=== PATIENT | male | born 1935 | race Caucasian/White ===

== ENCOUNTER 2020-11-25 11:02 | Emergency (ER) | payer OTHER ==
[~2020-11-25] VITALS: Ht 177.8 cm; Wt 101.6 kg
[~2020-11-25 11:02] MED LIST: ASCO500 PO; ASPI325 PO; ASPI81CH PO; BUDE6HFA INH; CHOL10002; CHOLESTEROL MED; COENZYME Q10100 MG PO; CYAN1000 PO; FORM12IH IH; HYDACE5 PO; Hair, Skin & N1 EACH; Hair, Skin & N1 EACH PO; METCAR500 PO; MOME220I IH; MULVITA; OXYACE5T PO; Omeprazole20 M1 PO; RED YEAST RICE30 GM PO; SIMV20 PO; SIMV40 PO; SUCR1SU PO; TRAM50 PO
[2020-11-25] MEDS ORDERED: STIOLTO RESPIMAT4 G1 INH (11:15)
[2020-11-25 11:40] LABS: BASOPHILS ABSOLUTE AUTO 0.04 K/mm3 (0.00-0.23); BASOPHILS PERCENT AUTO 1 % (0-2); EOSINOPHILS ABSOLUTE AUTO 0.17 K/mm3 (0.00-0.68); EOSINOPHILS PERCENT AUTO 2 % (0-6); Hematocrit 50.4 % (37.0-53.0); Hemoglobin 16.2 g/dL (13.5-17.5); IMMATURE GRAN ABSOLUTE AUTO 0.03 K/mm3 (0.00-0.10); IMMATURE GRAN PERCENT AUTO 0 % (0-1); LYMPHOCYTES ABSOLUTE AUTO 1.29 K/mm3 (0.84-5.20); LYMPHOCYTES PERCENT AUTO 15 % (21-46); MONOCYTES ABSOLUTE AUTO 0.76 K/mm3 (0.16-1.47); MONOCYTES PERCENT AUTO 9 % (4-13); Mean Corpuscular HGB 31.8 pg (26.0-34.0); Mean Corpuscular HGB Conc 32.1 g/dL (31.5-36.5); Mean Corpuscular Volume 99 fL (80-100); Mean Platelet Volume 10.4 fL (9.1-12.4); NEUTROPHILS ABSOLUTE AUTO 6.57 K/mm3 (1.96-9.15); NEUTROPHILS PERCENT AUTO 74 % (41-73); Platelet Count 249 K/mm3 (150-400); RDW Coefficient Variation 13.1 % (11.7-14.2); RDW Standard Deviation 48.5 fL (35.1-46.3); Red Blood Cell Count 5.09 M/mm3 (4.30-5.90); White Blood Cell Count 8.86 K/mm3 (4.00-11.30)
[2020-11-25 11:51] LABS: Alanine Aminotransfer (ALT/SGP 23 U/L (12-78); Albumin, Blood 3.6 g/dL (3.4-5.0); Albumin/Globulin Ratio 1.1 (0.8-1.8); Alk Phos 61 U/L (50-136); Anion Gap 2 mmol/L (6-16); Aspartate Aminotrans (AST/SGOT 17 U/L (12-37); Bilirubin, Total 0.8 mg/dL (0.1-1.0); Blood Urea Nitrogen 15 mg/dL (8-24); Bun/Creatinine Ratio 14.7 (12.0-20.0); CO2, Blood 34 mmol/L (21-32); Calcium, Blood 8.8 mg/dL (8.5-10.1); Chloride, Blood 100 mmol/L (98-108); Creatinine, Blood 1.02 mg/dL (0.60-1.20); Globulin, Blood 3.4 g/dL (2.2-4.0); Glomerular Filtration Rate >60 (60-); Glucose, Blood 121 mg/dL (70-99); Potassium, Blood 4.4 mmol/L (3.5-5.5); Sodium, Blood 136 mmol/L (136-145)
[2020-11-25] MEDS ORDERED: LEVFLO500 PO (14:29)
[2020-11-25] MEDS ORDERED: PRED20 PO (14:29)
== END 2020-11-25 15:20 | disposition home or self-care (01) ==
LOC: ER 11:02
PROVIDERS: Emergency Medicine
DX: J44.1 Chronic obstructive pulmonary disease with (acute) exacerbation (principal); Z79.51 Long term (current) use of inhaled steroids; Z79.899 Other long term (current) drug therapy
CPT/HCPCS: 71045; 80053; 85025; 93005; 93010; 94644; 96365; 96367; 96375; 99285-25; J0456; J0696; J2930; J7050

== ENCOUNTER 2020-12-27 10:53 | Inpatient (IN) | payer OTHER ==
[~2020-12-27] VITALS: Ht 177.8 cm; Wt 99.8 kg
[~2020-12-27 10:53] MED LIST changes: +LEVFLO500 PO; +PRED20 PO; +STIOLTO RESPIMAT4 G1 INH
[2020-12-27 11:50] LABS: BASOPHILS ABSOLUTE AUTO 0.04 K/mm3 (0.00-0.23); BASOPHILS PERCENT AUTO 0 % (0-2); EOSINOPHILS ABSOLUTE AUTO 0.03 K/mm3 (0.00-0.68); EOSINOPHILS PERCENT AUTO 0 % (0-6); Hemoglobin 17.5 g/dL (13.5-17.5); IMMATURE GRAN ABSOLUTE AUTO 0.04 K/mm3 (0.00-0.10); IMMATURE GRAN PERCENT AUTO 0 % (0-1); LYMPHOCYTES ABSOLUTE AUTO 1.67 K/mm3 (0.84-5.20); LYMPHOCYTES PERCENT AUTO 16 % (21-46); MONOCYTES ABSOLUTE AUTO 0.84 K/mm3 (0.16-1.47); MONOCYTES PERCENT AUTO 8 % (4-13); Mean Corpuscular HGB 31.8 pg (26.0-34.0); Mean Corpuscular HGB Conc 31.8 g/dL (31.5-36.5); Mean Corpuscular Volume 100 fL (80-100); Mean Platelet Volume 10.4 fL (9.1-12.4); NEUTROPHILS ABSOLUTE AUTO 7.59 K/mm3 (1.96-9.15); NEUTROPHILS PERCENT AUTO 74 % (41-73); Platelet Count 257 K/mm3 (150-400); RDW Coefficient Variation 11.9 % (11.7-14.2); RDW Standard Deviation 44.2 fL (35.1-46.3); Red Blood Cell Count 5.51 M/mm3 (4.30-5.90); White Blood Cell Count 10.21 K/mm3 (4.00-11.30)
[2020-12-27 11:57] LABS: Base Excess Venous 14.3 mmol/L; Bicarbonate Venous 33.2 mmol/L (24.0-30.0); PCO2 Venous 81.5 mmHg (38-42); PO2 Venous 158 mmHg (38-42); pH Blood Venous 7.31 (7.34-7.37)
[2020-12-27] MEDS ORDERED: LORA10ER PO ×2 (11:58→15:57)
[2020-12-27] MEDS ORDERED: OMEP20ER PO ×2 (11:58→15:56)
[2020-12-27] MEDS ORDERED: ASPI81CH PO (11:58)
[2020-12-27] MEDS ORDERED: GUAI600T33 PO ×2 (11:58→15:55)
[2020-12-27 12:13] LABS: Alanine Aminotransfer (ALT/SGP 29 U/L (12-78); Albumin, Blood 3.9 g/dL (3.4-5.0); Albumin/Globulin Ratio 1.2 (0.8-1.8); Alk Phos 64 U/L (50-136); Anion Gap 2 mmol/L (6-16); Aspartate Aminotrans (AST/SGOT 23 U/L (12-37); Bilirubin, Total 0.7 mg/dL (0.1-1.0); Blood Urea Nitrogen 18 mg/dL (8-24); Bun/Creatinine Ratio 22.5 (12.0-20.0); CO2, Blood 40 mmol/L (21-32); Calcium, Blood 8.9 mg/dL (8.5-10.1); Chloride, Blood 94 mmol/L (98-108); Globulin, Blood 3.3 g/dL (2.2-4.0); Glomerular Filtration Rate >60 (60-); Glucose, Blood 128 mg/dL (70-99); Potassium, Blood 4.7 mmol/L (3.5-5.5); Sodium, Blood 136 mmol/L (136-145); Total Protein, Blood 7.2 g/dL (6.4-8.2)
[2020-12-27 13:14] LABS: Base Excess Venous 16.5 mmol/L; Bicarbonate Venous 33.9 mmol/L (24.0-30.0); PO2 Venous 151 mmHg (38-42); pH Blood Venous 7.22 (7.34-7.37)
[2020-12-27] MEDS ORDERED: ALBU2.5V5 INH (15:55)
[2020-12-27] MEDS ORDERED: STIOLTO RESPIMAT4 G1 INH (15:55)
[2020-12-27] MEDS ORDERED: ASCO500 PO (15:56)
[2020-12-27] MEDS ORDERED: VITAMIN D31000 UNI1 PO (15:56)
[2020-12-27] MEDS ORDERED: Aspir 8181 MG PO (15:57)
[2020-12-27 16:03] LABS: Bicarbonate Venous 32.3 mmol/L (24.0-30.0); PO2 Venous 45 mmHg (38-42); pH Blood Venous 7.22 (7.34-7.37)
[2020-12-27 16:04] LABS: Base Excess Venous 15.9 mmol/L
--- NOTE | 2020-12-27 17:36 | NUR ---
Echocardiogram completed.
--- NOTE | 2020-12-27 18:40 | NUR ---
SHIFT SUMMARY PT LETHARGIC AND CONFUSED ONCE ARRIVED TO ROOM FROM ED. PT ON BIPAP AT 40% FIO2. OXYGEN SATURATION MAINTAINED ABOVE 92%. BED ALARM IN PLACE FOR CONFUSION. DEPENDS ON FOR INCONTINENCE. PT ABLE TO ASSIST IN TURNS IN BED. PHYSICIAN NOTIFIED OF PT'S HIGH HR. ORDERS FOR EKG TO BE DONE. WILL UPDATE PHYSICIAN. HR TACHY IN 130'S. BP STABLE. NO CP OR PRESSURE REPORTED. PT'S HX NOT ABLE TO BE COMPLETED D/T PT CONFUSION. WILL CONT TO MONITOR UNTIL REPORT GIVEN TO NIGHTSHIFT RN.
--- NOTE | 2020-12-27 18:56 | NUR ---
UPDATE PHYSICIAN UPDATED ON PT'S RATE AND RHYTHM OF AFIB IN 130'S. CARDIZEM GTT ORDERED, SEE EMAR.
--- NOTE | 2020-12-28 01:32 | NUR ---
0030 - pt on cardizem gtt that was initiated at 2044 with no changes to hr, aflutter/afib 120's-140's. no prn meds for hr. rn called md to get order for lopressor push. got order for 5mg iv lopressor push now, and then repeat in 30min if no changes. once medication ordered and verified per pharmacy, pt hr suddenly decreased to an average of 70's. will hold off on push for time being. cardizem gtt running at 15mg/hr and will continue for about one hour, if hr drops even more, will titrate down. vss. will continue to monitor.
[2020-12-28 04:55] LABS: BASOPHILS ABSOLUTE AUTO 0.01 K/mm3 (0.00-0.23); BASOPHILS PERCENT AUTO 0 % (0-2); EOSINOPHILS PERCENT AUTO 0 % (0-6); Hematocrit 56.1 % (37.0-53.0); Hemoglobin 17.9 g/dL (13.5-17.5); IMMATURE GRAN ABSOLUTE AUTO 0.03 K/mm3 (0.00-0.10); IMMATURE GRAN PERCENT AUTO 0 % (0-1); LYMPHOCYTES PERCENT AUTO 19 % (21-46); MONOCYTES ABSOLUTE AUTO 0.07 K/mm3 (0.16-1.47); MONOCYTES PERCENT AUTO 1 % (4-13); Mean Corpuscular HGB 31.6 pg (26.0-34.0); Mean Corpuscular HGB Conc 31.9 g/dL (31.5-36.5); Mean Corpuscular Volume 99 fL (80-100); Mean Platelet Volume 10.6 fL (9.1-12.4); NEUTROPHILS ABSOLUTE AUTO 5.93 K/mm3 (1.96-9.15); NEUTROPHILS PERCENT AUTO 80 % (41-73); Platelet Count 250 K/mm3 (150-400); RDW Coefficient Variation 11.8 % (11.7-14.2); Red Blood Cell Count 5.67 M/mm3 (4.30-5.90); White Blood Cell Count 7.44 K/mm3 (4.00-11.30)
[2020-12-28 05:16] LABS: Alanine Aminotransfer (ALT/SGP 33 U/L (12-78); Albumin, Blood 3.8 g/dL (3.4-5.0); Albumin/Globulin Ratio 1.2 (0.8-1.8); Alk Phos 67 U/L (50-136); Anion Gap 4 mmol/L (6-16); Aspartate Aminotrans (AST/SGOT 24 U/L (12-37); Bilirubin, Total 0.8 mg/dL (0.1-1.0); Blood Urea Nitrogen 24 mg/dL (8-24); Bun/Creatinine Ratio 33.3 (12.0-20.0); CO2, Blood 40 mmol/L (21-32); Calcium, Blood 8.5 mg/dL (8.5-10.1); Chloride, Blood 93 mmol/L (98-108); Creatinine, Blood 0.72 mg/dL (0.60-1.20); Globulin, Blood 3.3 g/dL (2.2-4.0); Glomerular Filtration Rate >60 (60-); Glucose, Blood 147 mg/dL (70-99); Magnesium, Blood 2.8 mg/dL (1.6-2.4); Potassium, Blood 4.5 mmol/L (3.5-5.5); Sodium, Blood 137 mmol/L (136-145); Total Protein, Blood 7.1 g/dL (6.4-8.2)
--- NOTE | 2020-12-28 06:36 | NUR ---
SHIFT SUMMARY PT FATIGUED AND CONFUSED THROUGHOUT SHIFT. TELE READ ATRIAL FLUTTER 130'S. MANAGED PER EMAR WITH CARDIZEM DRIP. HR NORMALIZED INTO 70'S AND 80'S BEFORE RISING BACK INTO 130'S. O2 DESATS WITH MASK OFF. INCONTINENT EPISODE. BP STABLE. ON BIPAP 18/8 40%. LOW PH AND HIGH CO2 NOTED. CONTINUE TO MONITOR WITH AM VBG. PT LEFT IN BED RESTING WITH CALL ALARM AT SIDE
[2020-12-28 07:17] LABS: Base Excess Venous 15.9 mmol/L; Bicarbonate Venous 33.2 mmol/L (24.0-30.0); PCO2 Venous 91.3 mmHg (38-42); PO2 Venous 53.4 mmHg (38-42); pH Blood Venous 7.28 (7.34-7.37)
--- NOTE | 2020-12-28 09:00 | NUR ---
PT ALERT AND ORIENTED X2-3. NEURO WNL. 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 PERRLA. DENIES N/T. ON BIPAP SATTING 18/8 AND 40%. NPO AT THIS TIME. CO2 TRENDING IN RIGHT DIRECTION. ORAL CARE Q4. WEARS 3L 02 NASAL CANNULA AT BASELINE. TELE SHOWING AFLUTTER WITH HR 130'S. CARDIZEM DRIP AT 15 MG/HR. BP STABLE. WILL CONTINUE TO MONITOR. BOWEL TONES PRESENT. ATTENDS IN PLACE. Q2 TURNING AND NEEDED. PATIENT ABLE TO SHIFT HIPS IN BED. [facility] TRANSF[facility] TO [facility] [place]. SPOKE WITH ON PHONE AND GAVE UPDATE. CALL LIGHT IN REACH.
--- NOTE | 2020-12-28 12:04 | NUR ---
NO ACUTE CHANGES. BIPAP SETTINGS 16/8 AND 40%. RATE SET TO 14. TELE SHOWING ALFUTTER HR 100-120'S CARDIZEM DRIP AT 10 MG/HR. BP STABLE. WILL CONTINUE TO MONITOR.
--- NOTE | 2020-12-28 15:54 | NUR ---
CARDIZEM DRIP AT 5 MG/HR. TELE SHOWING AFLUTTER WITH HR SUSTAINING 80'S. CALL PLACED TO DR. ROSS. NEW ORDERS FOR PO CARDIZEM TO START DAILY AND DRIP TO TURN OFF AFTER ONE HOUR POST PO CARDIZEM. PATIENT MORE AWAKE AND ALERT THIS AFTERNOON. ANSWERING QUESTIONS APPROPRIATELY. Q4 ORAL CARE. CALL LIGHT IN REACH. WILL CONTINUE TO MONITOR.
--- NOTE | 2020-12-28 17:13 | NUR ---
PT CONVERTED TO NORMAL SINUS RHYTHM. HR SUSTAINING 80'S. DENIES NEEDS AT THIS TIME. WILL CONTINUE TO MONITOR.
--- NOTE | 2020-12-28 17:48 | NUR ---
SHIFT SUMMARY: SEE PREVIOUS NOTES FOR UPDATES. PATIENT REMAINS ON BIPAP SETTINGS 16/ AT 40% WITH RATE OF 14. CO2 TRENDING IN RIGHT DIRECTION. PATIENT ABLE TO SPEAK WITH ON PHONE, MENTATION IMPROVING. SLEEPING ON AND OFF. TAKING SIPS OF WATER WITH MEDS AT THIS TIME. CARDIZEM DRIP TURNED OFF. TELE SHOWING SINUS RHYTHM WITH HR 80'S. Q2 TURNING AND NEEDED. Q4 ORAL CARE. PATIENT USING URINAL WITH ASSISTANCE. OVERALL FEELING WEAK. POSSIBLE TRANSFER TO [facility] IN [place]. VITAL SIGNS REMAIN STABLE. WILL CONTINUE TO MONITOR AND REPORT OFF.
--- NOTE | 2020-12-29 05:39 | NUR ---
RAY AROUSES EASILY AND IS ABLE TO RESPOND IN SHORT SENTENCES. BIPAP IN PLACE, MAINTAINING SATS ABOVE 89%. HE REMAINS NPO IN ANTICIPATION FOR THE SWALLOW STUDY TODAY. HE IS LYING IN BED WITH THE CALL LIGHT IN REACH. WILL REPORT TO DAY SHIFT RN.
[2020-12-29 09:33] LABS: Base Excess Venous 22.9 mmol/L; Bicarbonate Venous 40.8 mmol/L (24.0-30.0); PCO2 Venous 88.9 mmHg (38-42); PO2 Venous 87.5 mmHg (38-42); pH Blood Venous 7.35 (7.34-7.37)
--- NOTE | 2020-12-29 10:04 | NUR ---
PT VERY SOMULENT THIS AM COMPARED TO YESTERDAY DAY SHIFT. OPENING EYES AT TIMES TO VERBAL STIMULI. NOT RESPONDING VERBALLY. UNABLE TO TELL ME HIS NAME AND DATE OF . VBG ORDERED AND NUMBERS IMPROVING. ON BIPAP AT 18/8 AND 40% WITH RATE OF 14. RR 20-34 THIS AM. LUNGS SOUNDS DIMINISHED WITH MINIMAL AIR MOVEMENT HEARD. SATING LOW 90'S. Q4 ORAL CARE. WHEN BIPAP NOT IN PLACE FOR ORAL CARE PATIENT IS ON 3 L NASAL CANNULA. TELE SHOWING SINUS WITH HR 80-90'S. UNABLE TO GIVE PO CARDIZEM THIS AM. SPEECH ATTEMPTED TO SEE PATIENT, UNABLE TO ASSESS. PT WILL REMAIN NPO AT THIS TIME. CALL LIGHT IN REACH. CONDOM CATH PLACED TO MONITOR URINE OUTPUT. WILL CONTINUE TO MONITOR. ANTIBIOTICS INFUSING.
[2020-12-29 10:57] LABS: Albumin, Blood 3.7 g/dL (3.4-5.0); Anion Gap 3 mmol/L (6-16); Blood Urea Nitrogen 41 mg/dL (8-24); Bun/Creatinine Ratio 49.9 (12.0-20.0); CO2, Blood 42 mmol/L (21-32); Chloride, Blood 95 mmol/L (98-108); Creatinine, Blood 0.82 mg/dL (0.60-1.20); Glomerular Filtration Rate >60 (60-); Glucose, Blood 164 mg/dL (70-99); Phosphorus, Blood 3.9 mg/dL (2.5-4.9); Potassium, Blood 4.7 mmol/L (3.5-5.5); Sodium, Blood 140 mmol/L (136-145)
--- NOTE | 2020-12-29 12:23 | NUR ---
UPON TURNING, AND ORAL CARE THIS AFTERNOON PATIENT OPENING EYES. HELPING SLIGHTLY WITH TURNING, AND ABLE TO STATE HIS BIRTHDATE. STILL VERY SOMULENT AND SLEEPY.
--- NOTE | 2020-12-29 18:02 | NUR ---
SHIFT SUMMARY: PATIENT ABLE TO ANSWER YES AND NO QUESTIONS AT THIS TIME. LESS SOMULANT THROUGHOUT THE DAY. OPENING EYES UPON WALKING IN ROOM. ABLE TO HELP TURN WHEN STAFF ARE MOVING IN BED. BIPAP REMAINS IN PLACE SETTINGS 14/12 AT 40% AND RATE OF 18. SATING LOW 90'S. ORAL CARE Q4. TELE REMAINS UNCHANGED. UNABLE TO TAKE ANY PO AT THIS TIME, SPEECH EVAL NOT COMPLETED AND PATIENT SOMULANT. CONDOM CATH IN PLACE. 300 OUTPUT WITH CATH FOR DAY SHIFT. LR INFUSING AT 75 ML/HR X1 BAG. Q2 TURNING AND NEEDED. PATIENT DOES NOT APPEAR TO BE IN ANY PAIN. SHAKES HEAD NO TO QUESTIONS. CALL LIGHT IN REACH. WILL CONTINUE TO MONITOR AND REPORT OFF.
--- NOTE | 2020-12-29 20:57 | NUR ---
PATIENT CONVERTED TO AFLUTTER AROUND 1999, AT 2005 STARTED CARDIZEM GTT 10MG/HR, NO CHANGE IN HR 133 BP REMAINING 169-174/101 INCREASED AT 2038 TO 15MG/HR CALLED MD, NO NEW ORDERS AT THIS TIME AND CONTINUE TO MONITOR.
--- NOTE | 2020-12-30 07:39 | NUR ---
zAssumption of Care Pt is resting in bed with eyes closed. He does open his eyes to his name. He is dependent on the BIPAP mask. Per safety of swallowing all PO intake has been held and the charge nurse is aware. He is on the BIPAP @ 40 % with o2 sat of 92%. He does have increased work of breathing and his lung sounds are tight and wheezy. RT is coming in to do a breathing TX. Condom cath is in place with yellow urine output.
[2020-12-30 11:54] LABS: Base Excess Venous 25.4 mmol/L; Bicarbonate Venous 43.3 mmol/L (24.0-30.0); PO2 Venous 90.6 mmHg (38-42); pH Blood Venous 7.36 (7.34-7.37)
--- NOTE | 2020-12-30 14:04 | NUR ---
Palliative care consult requested by Dr. Flores and bedside RN, and after assessment, placed call to pt's . Pt is no longer responsive. He is grimacing with the bipap mask in place however. His Yenny does understand that pt will pass away with bipap mask, and she also states she knows wearing it isn't a permanent solution, especially as he is now unresponsive. She is agreeable to begin comfort care. She is coming in to see pt. Dr Flores gave VO for comfort care. Bedside RN Adrian will not remove pt's mask until he is properly medicated for air hunger and/or pain and also not until his is present. I will remain available.
--- NOTE | 2020-12-30 14:10 | NUR ---
Update Palliative care spoke with the of the pt who has voiced that she would like to transition the pt to comfort care. He continues to have RR in the 30's with increased work of breathing. The is on the way in to see her and we are awaiting her arrival. The pt is not arousable at this time.
--- NOTE | 2020-12-30 17:14 | NUR ---
Shift Summary The patient's has been at the bedside with him this afternoon. His IV fluids and meds were stopped per Dr Flores's orders and the 's request. The BIPAP was switch over to a high flow canula for comfort. This nurse washed his face and did oral care. He had some morphine as ordered earlier this afternoon and he has been much more comfortable since. He is having periods of apnea now and his RR are infrequent a shallow. The has been facetiming with his family members so they can say goodbye and she is very understanding and grateful for the care he has received here. The pt is resting comfortably and his is at his side.
== END 2020-12-30 20:00 | DRG 189 ==
LOC: ER 10:53 → SURS 14:35 → ERHOLD 14:35 → SURS 16:34
PROVIDERS: Emergency Medicine; Internal Medicine; Nurse Practitioner Acute Care; Student in an Organized Health Care Education/Training Program; ADMIT Internal Medicine
PROC: 5A09457 Assistance with Respiratory Ventilation, 24-96 Consecutive Hours, Continuous Positive Airway Pressure (ICD-10-PCS; principal; 2020-12-27)
DX: J96.21 Acute and chronic respiratory failure with hypoxia (principal); G93.41 Metabolic encephalopathy; J44.1 Chronic obstructive pulmonary disease with (acute) exacerbation; E87.2 Acidosis; J96.22 Acute and chronic respiratory failure with hypercapnia; Z51.5 Encounter for palliative care; Z66 Do not resuscitate; I48.0 Paroxysmal atrial fibrillation; R32 Unspecified urinary incontinence; E78.5 Hyperlipidemia, unspecified; K21.9 Gastro-esophageal reflux disease without esophagitis; Z96.652 Presence of left artificial knee joint; Z96.641 Presence of right artificial hip joint; Z99.81 Dependence on supplemental oxygen; Z79.899 Other long term (current) drug therapy; Z79.82 Long term (current) use of aspirin; Z79.52 Long term (current) use of systemic steroids; Z85.038 Personal history of other malignant neoplasm of large intestine; Z90.49 Acquired absence of other specified parts of digestive tract
CPT/HCPCS: 36415; 71045; 80053; 80069; 82803; 83735; 83880; 84484; 85025; 93005; 93010; 93306; 93930; 94640; 94660; 94762; 96365; 96366; 96375; 99285-25; A9270; J0456; J1650; J1940; J2930; J7050; J7120